=== PATIENT | male | born 1950 | race Caucasian/White ===

== ENCOUNTER 2025-02-09 11:13 | Outpatient (AMB) | payer MEDICARE, SELFPAY ==
--- NOTE | 2025-02-09 11:18 | A.OFFPC_ITS ---
Vital Signs 02/09/25 11:25 Height 5 ft 7 in Weight 167 lb 2 oz BMI 26.2 BP 100/64 Blood Pressure Location Rt brachial Position Sitting Respiration 16 Pulse 61 Pulse Source Pulse Oximeter Temp 97.9 F Temp Source Oral Pulse Oximetry (%) 98 Oxygen Delivery Method Room Air Intake Visit Reasons: Est. Care / B/P and Medication Intake Note: patient here for new patient visit. BP/Medication Laundry Helper Required: No Allergies No Known Allergies Allergy (Verified 02/09/25 11:46) Medication List - Last Reviewed 02/09/25 by ROSIE Alvarez amlodipine 5 mg PO DAILY diphenoxylate-atropine 2.5-0.025 mg 1 tab PO DAILY lisinopril 5 mg PO BID Tobacco use date assessed: 02/09/25 Fall risk assessment: No Falls in past year Last assessed Fall Risk: 02/09/25 Dental Screening Dental Screen Date: 02/09/25 Did you have a dental visit in the last 12 months?: Yes Did you have a dental problem in the last 6 months where you did not have access to dental care?: No Was dental information given to patient?: Patient has dentist HPI HPI Comments History of Present Illness Details 74 y/o M with HTN, Chronic diarrhea, Div erticulitis, B12 def, Umbilica hernia , lipoma of back SurgHx: hernia repair x 2, CTS bilat release, tonsillectomy FHx: brother w Ulcerative colitis, PGM Parkinsons; MOm HTN glaucoma, cataract; MGM HTN; SocHx: retired [employer] Health Maintenance: See scanned preventative medicine assessment with personalized health plan and screening schedule. Colon: 04/25/2014; Vaccines: Tdap 2023, UTD on all vaccines. AAA screen EKG: Here today to est care Old records reviewed, Ena Intentional Wt loss. Walking w/ . Has lost about 8 lbs in the last year. HTN controlled on current meds, albeit soft. IBS with sx. Would like to see Gi. Uses Lomotil PRN; last year declined colonoscopy; did not follow through on FIT testing. Would like cologaurd today. Has pink skin lesion R forearm that is not bothersome to him. ? Basal cell. Will follup with Derm ([place]) Exam Awake alert NAD RRR LS CTAB No edema ble , + PP R forearm, flat pink macule suspicious for BCC Mood and affect appropriate Plan: As his blood pressure is soft given the 8 lb weight loss I will have him hold his norvASC 5 mg and monitor his blood pressure daily at home. Bring log with him to the next appointment. The goal be to have the systolic blood pressure less than 140. I have renewed his Lomotil prescription. Ordered Cologuard. Referred him to [facility] group for his IBS. Recommend repeating his labs and returned to the office at the end of February for an annual wellness visit. Recommend following up with the skin lesion on the right arm at his convenience. Total time spent caring for the patient today was 45 minutes. This includes time spent before the visit reviewing the chart, time spent during the visit, and time spent after the visit on documentation, reviewing laboratory results, diagnostic imaging, medications, performing a medically necessary evaluation, counseling on diagnoses, care coordination, ordering appropriate tests, ordering appropriate medications, review of tests performed by other providers, reporting test results with the patient, communication with other healthcare providers. [facility] Medical History (Updated 02/09/25 @ 12:13 by Ivis Fisher, [facility]) High blood pressure History of gastroesophageal reflux (GERD) Family History (Updated 02/09/25 @ 11:29 by ROSIE Alvarez) Paternal Uncle Alcohol abuse Mother High blood pressure Father High blood pressure High cholesterol Social History (Updated 02/09/25 @ 11:25 by ROSIE Alvarez) Housing: House Patient Tobacco Use Status: Never used Tobacco e-Cigarette/Vaping Use: Never Used Second Hand Smoke Exposure: No service: No Current occupational status: retired Current occupational exposures/hazards: No Cognitive needs: No Hearing needs: No Vision needs: Yes Questionnaire PHQ-9 Over the last 2 weeks, how often have you been bothered by any of the following problems? 1. Little interest or pleasure in doing things: not at all 2. Feeling down, depressed, or hopeless: not at all 3. Trouble falling or staying asleep, or sleeping too much: not at all 4. Feeling tired or having little energy: not at all 5. Poor appetite or overeating: not at all 6. Feeling bad about yourself - or that you are a failure or have let yourself or your family down: not at all 7. Trouble concentrating on things, such as reading the newspaper or watching television: not at all 8. Moving or speaking so slowly that other people could have noticed. Or the opposite - being so fidgety or restless that you have been moving around a lot more than usual: not at all 9. Thoughts that you would be better off or of hurting yourself in some way: not at all Total score: 0 Depression Screening Interpretation: Negative Depression Screening Done: Yes 78439 - PHQ-9 Billing: Yes Source: Developed by Drs. Evert Pulido, Kathy Nieto, Ruiz Pimentel and colleagues, with an educational marco a from [employer]. Thrive Questionnaire Date Thrive assessed: 02/09/25 I am a: Patient What is your living situation today?: I have a steady place to live Within the past 12 months, did the food you bought not last and you didn't have the money to get more?: Never true Within the past 12 months, did you worry whether your food would run out before you got money to buy more?: Never true Do you have trouble paying for medicines?: No Do you have trouble getting transportation to medical appointments?: No Do you have trouble paying your heating and electricity bill?: No Do you have trouble taking care of your child, family member or friend?: No Do you have trouble with day-to-day activities such as bathing, preparing meals, shopping, managing finances, etc.?: No Are you currently unemployed and looking for a job?: No Are you interested in more education?: No Please select the resources that you would like help with: None Currently or been in a relationship where the following occur: No concerns reported THRIVE Score: 0 AUDIT C Alcohol Use Questionnaire (AUDIT-C) 1. How often do you have a drink containing alcohol?: Never 3. How often do you have six or more drinks on one occasion?: Never Total Score: 0 Score Reviewed/Action Taken: Yes CATIA-7 AMB Questionnaire CATIA-7 Date CATIA - 7 assessed: 02/09/25 Feeling nervous, anxious, or on edge: 0 = Not at all Not being able to stop or control worryin = Not at all Worrying too much about different things: 0 = Not at all Trouble relaxin = Not at all Being so restless that it is hard to sit still: 0 = Not at all Becoming easily annoyed or irritable: 0 = Not at all Feeling afraid as if something awful might happen: 0 = Not at all Total CATIA-7 score (0-4 normal; 5-9 mild; 10-14 moderate; 15-21 severe): 0 Source: Developed by Drs. Evert Pulido, Kathy Nieto, Ruiz Pimentel and colleagues, with an educational marco a from [employer]. CATIA-7 Assessment Billing CATIA-7 Assessment Tool: CATIA-7 Assessment 26843 Physical exam (Primary Care) Vital Signs: Last Vital Signs Temp 97.9 F 02/09/25 11:25 Pulse 61 02/09/25 11:25 Resp 16 02/09/25 11:25 BP 100/64 02/09/25 11:25 Pulse Ox 98 02/09/25 11:25 Oxygen Delivery Method Room Air 02/09/25 11:25 BMI result Body Mass Index 26.2 Tobacco/Smoking Status: Tobacco use Status Tobacco use date assessed 02/09/25 02/09/25 11:25 Patient Tobacco Use Status Never used Tobacco 02/09/25 11:25 e-Cigarette/Vaping Use Never Used 02/09/25 11:25 PHQ-9: PHQ-9 Score PHQ-9: Total score 0 02/09/25 11:20 Depression Screening Interpretation: Negative Thrive Assessment: Date of Thrive Assessment Date Thrive assessed 02/09/25 02/09/25 11:20 Currently or been in a relationship where the following occur: No concerns repor akhil Coding Level of Care Code New Pt Level 4 (15128) Complex EM visit Add On G2211 Diagnoses Encounter to establish care Z76.89 History of colonoscopy Z98.890 Laboratory exam ordered as part of routine general medical examination Z00.00 Primary hypertension I10 Hypertension type: primary hypertension Vitamin B 12 deficiency E53.8 Skin lesion of right arm L98.9 Additional Codes CATIA-7 Assessment Billing - CATIA-7 Assessment Tool: CATIA-7 Assessment 25707 ([id number]) PHQ-9 - 49371 - PHQ-9 Billing: Yes ([id number]) Assessment & Plan Assessment & Plan (1) Encounter to establish care: Code(s): Z76.89 - Persons encountering health services in other specified circumstances (2) History of colonoscopy: Onset Date: ~2014 Code(s): Z98.890 - Other specified postprocedural states Category: Surgical (3) Laboratory exam ordered as part of routine general medical examination: Code(s): Z00.00 - Encounter for general adult medical examination without abnormal findings Category: Medical (4) High blood pressure: Code(s): I10 - Essential (primary) hypertension Category: Medical Qualifiers: Hypertension type: primary hypertension Qualified Code(s): I10 - Essential (primary) hypertension (5) Vitamin B 12 deficiency: Code(s): E53.8 - Deficiency of other specified B group vitamins Category: Medical (6) Skin lesion of right arm: Code(s): L98.9 - Disorder of the skin and subcutaneous tissue, unspecified Category: Medical Plan . Orders: Orders Complete Blood Count no Diff Today Z00.00 - Encounter for general adult medical examination without abnormal findings Vitamin B12 and Folate Today Z00.00 - Encounter for general adult medical examination without abnormal findings Comprehensive Met. Panel Today Z00.00 - Encounter for general adult medical examination without abnormal findings Lipid Panel Today Z00.00 - Encounter for general adult medical examination without abnormal findings Microalbumin, Random (w Creat) Today Z00.00 - Encounter for general adult medical examination without abnormal findings Prostate Specific Antigen Scr Today Z00.00 - Encounter for general adult medic al examination without abnormal findings TSH reflex Free T4 Today Z00.00 - Encounter for general adult medical examination without abnormal findings Vitamin D 25-OH Total Today Z00.00 - Encounter for general adult medical examination without abnormal findings Referrals Cologuard Test Z12.11 - Encounter for screening for malignant neoplasm of colon [facility] Referral Z12.4 - Encounter for screening for malignant neoplasm of cervix Medications: New lisinopril 5 mg PO DAILY 90 tabs 0RF diphenoxylate-atropine 2.5-0.025 mg 1 tab PO DAILY 30 tabs 2RF amlodipine 5 mg PO DAILY 90 tabs 0RF Patient Instructions: Walk-In Care (Urgent Care): We Make it Easy Walk-in for urgent medical issues such as: ? Seasonal Allergies ? Insect Bites ? Cough ? Diarrhea ? Acute Asthma Attacks ? Back, Knee or Joint Pain ? Ear Infection ? Fever without a Rash ? Headaches ? Nausea ? [place] Eye, Rash or Skin Irritation ? Sore Throat ? Sports Physicals ? Vomiting Most insurances are accepted. Patients do not need to be part of the [facility] to seek care at the walk-in clinic. Locations [address] [place] [address] Open Friday through Friday 8am-5pm *Hours may vary due to staffing availability. To confirm Walk-In Care hours please call. [address] [place] [address] ? [phone] [facility] Walk-In Care in [place] provides services to ages 18 and over. Open Friday-Friday: 7 a.m. to 5 p.m. and Friday: 9 a.m. to 3 p.m.* *Hours may vary due to staffing availability. To confirm Walk-In Care hours in [place], please call [phone]. [address] [place] [address] ? [phone] [facility] Walk-In Care in [place] provides services to ages 12 and over. Open Friday-Friday: 8 a.m. to 5 p.m. Hours may vary due to staffing availability. To confirm Walk-In Care hours in [place], please call [phone]. LABORATORY SERVICES: [facility] Lab ? Primary Location [address] [place] [address] Friday through Friday 6:00 AM ? 5:00 PM Friday 7:00 AM ? 11:00 AM* [phone] The [facility] Lab is centrally located near the front entrance of the [facility] for easy outpatient access. Convenient parking is provided for outpatients. *Hours may vary due to staffing availability. To confirm Laboratory hours for any location, please call [phone]. Offsite Location For your convenience, we offer offsite laboratory draw stations at the following locations: [address] [place] [address] ? [facility] [address], [address] Friday through Friday 7:30 AM ? 1:00 PM* [phone] *Hours may vary due to staffing availability. To confirm Laboratory hours for any location, please call [phone]. [place] ? [address] Friday through Friday 6:00 AM ? 3:30 PM* Friday 6:30 AM ? 3 PM* [phone] *Hours may vary due to staffing availability. To confirm Laboratory hours for any location, please call [phone]. [address] [facility] Friday through Friday 7:30 AM ? 4:00 PM* [phone] *Hours may vary due to staffing availability. To confirm Laboratory hours for any location, please call [phone] [place] [address] Friday through 9:00 AM ? 4:00 PM* *Hours may vary due to staffing availability. To confirm Laboratory hours for any location, please call [phone]. Appointments are not necessary. Walk-ins are welcome. Like all the departments throughout the [facility], our Lab undergoes frequent reviews to ensure the quality and accuracy of test results, and our staff takes special pride in its status as a nationally accredited facility. Patient Portal: [facility] ONE PATIENT. ONE RECORD. BETTER CARE. [facility] has a fully integrated, cutting- edge mobile electronic health information system that has revolutionized the way we care for our patients and manage our organization. This system improves communication and coordination enabling us to provide safe, higher-quality care, and an overall positive experience for staff and patients. Our first priority, as always, is to deliver the highest quality care possible. The system is running in the background supporting that priority. This portal is for all [facility] services and practices. If you are experiencing any technical difficulties with enrolling or logging into the Patient Portal please complete the [facility] Patient Portal Technical Support Form. [facility] now offers a new secure on-line interactive tool for patients to review their health information ? ?Patient Portal. This interactive web portal will enable patients and their families to take an active role in their care by providing easy, secure access to their health information via the internet. The Patient Portal provides patients with instant access to their health information, including laboratory results, medications, allergies, demographic information, visit history, and more. In addition to managing their own care, parents and health care proxies with authorized consent will appreciate the ability to access the records of those individuals for whom they provide care. Please note: if you wish to gain access (Proxy) to another patient?s portal, you will be required to come to the Medical Records Department in person at [facility]. Both the patient giving proxy access and the proxy will need to provide photo identification and complete the appropriate authorization. The Patient Portal also allows track their appointments online. The [facility] Patient Portal also saves patients time by allowing them to submit updates to their demographic and contact information prior to their visits. Portal email notifications will also alert patients to any new activity on their portal, such as test results and new appointments. In order to initially enroll in the [facility] Patient Portal, you will need to enter some required information including the following: * your [facility] Medical Record number * your personal home email address * name * date of Please note: In order to enroll in the [facility] Patient Portal, we need to have your email address on file in your electronic medical record. ?The email address needs to be specific for one person (yourself) in order for your Portal enrollment to be successful. ?You can update your email address in person with our Registration staff when you are registering for a hospital visit. ?Otherwise, you will need to come to the Health Information Management (Medical Records) Department at [facility]. ?We are open from Friday ? Friday from 7:30 a.m. ? 4:30 p.m. ?You will be required to present a photo id. Once you have successfully enrolled in the Patient Portal, you will receive a one-time user id and password for the Portal, sent to your email address. ?This will allow you to log into the Patient Portal within 99 hrs and reset your own logon id and password, and define personal security questions. ?Once your permanent login and password have been set, you can log into the [facility] Patient P ortal at any time via the blue button above or from the Portal Logon button on any page of the [facility] website. [facility] and [facility] encourage all of our patients to enroll in Patient Portal as it presents a valuable opportunity for patients and their families to actively participate in their care and stay healthy Welcome to [facility]. ?We look forward to working with you.
[2025-02-09 11:25] VITALS: BP 100/64; PULSE 61; RESP 16; TEMP 36.6; O2SAT 98; BMI 26.2
--- OUTSIDE RECORDS SUMMARY | 2025-02-09 15:19 | XMS_ITS | Clinical Summary ---
Author Organization [facility] [place] [address] [place] [address] [place] [phone] Phone Care Team Providers Care System Support Developer Name Role Phone Katie Veronica MD Primary Care Provider [phone] Allergies No known active allergies Medications ibuprofen (ADVIL,MOTRIN) 400 mg tablet Take 400 mg by mouth 2 times daily as needed. Active lisinopriL (PRINIVIL,ZESTR IL) 5 mg tablet Take 1 tablet (5 mg total) by mouth 2 (two) times a day. 180 tablet 1 5 Active amLODIPine (NORVASC) 5 mg tablet TAKE 1 TABLET BY MOUTH DAILY 90 tablet 1 5 Active amLODIPine (NORVASC) 5 mg tablet TAKE 1 TABLET BY MOUTH DAILY 90 tablet 1 5 01/29/20 25 Discontinued Active Problems Problem Noted Date Diagnosed Date Bilateral carpal tunnel syndrome 06/03/2022 Overview (02/25/2024): s/p surgery 2022 Vitamin B12 deficiency 12/15/2017 Chronic diarrhea 06/17/2016 Essential hypertension 02/24/2016 Diverticulitis of colon without hemorrhage 04/25 Overview (02/25/2024): Incidental finding at colonoscopy 04/25/2014. Umbilical hernia 11/17/2013 Ventral hernia 11/17/2013 Overview (02/25/2024): Quite large Encounters Date Type Department Care Team Description 01/28/2025 Telephone Adult Medicine [address] [phone] Katie Veronica MD from Last 3 Months Immunizations Immunization Administration Dates Next Due COVID-19 (Moderna/Spikevax) 12yo and older 02/06/2023 H1N1 Inj Preservative Free 02/03/2009 Influenza trivalent, 0.5mL ( Fluad) 65yo and older 02/06/2023,02/14/2022 Influenza trivalent, 0.5mL, preservative free (Fluarix; FluLaval; Fluzone) ages 6mo and older (Afluria) 3 years and older 01/21/2017,03/05/2016 Influenza trivalent, with preservative (Fluzone; Afluria) 6mo and older 02/12/2024 Moderna (age 6mo & older) Bi valent, COVID-19, 0.5 mL or 0.25 mL dosage 02/14/2022 Moderna SARS-CoV-2 COVID-19, mRNA, LNP-S, preservative free 07/30/2021,02/23/2021,06/02/2020,2020 Pfizer SARS-CoV-2 COVID-19, mRNA, LNP-S, preservative free 02/12/2024 Pneumococcal conjugate 20 va lent (Prevnar 20, PCV 20) 2mo and older 02/27/2022 RSV, bivalent, protein subun it RSVpreF, 0.5mL, Preservative Free (Arexvy) 50yo and older 03/06/2023 Tdap Tetanus diptheria acell ular pertussis (Boostrix; Adacel) 7yo and older 03/11/2024,10/17/2010 Surgical History Surgery Date Site/Laterality Comments HERNIA REPAIR 2004 Left PROCEDURE: HISTORICAL HERNIA REPAIR/ING; COMMENT: open with mesh. HERNIA REPAIR teenager Right PROCEDURE: HISTORICAL HERNIA REPAIR/ING; COMMENT: open COLONOSCOPY W/ BIOPSIES 04/25/2014 PROCEDURE: [place] COLONOSCOPY W/BIOPSY SINGLE/MULTIPLE; COMMENT: 6 mm right colon polyp: tubular adenoma Medical History Medical History Date Comments Umbilical hernia 11/17/2013 DX:Umbilical he rnia Elevated blood pressure 11/17/2013 DX:[place] akhil blood pressure Diverticulosis of colon (wit hout mention of hemorrhage) 04/25/2014 DX:Diverticulosis of colon ( without mention of hemorrhage); COMMENT: Incidental finding at colonoscopy 04/25/2014. Chronic diarrhea 06/17/2016 DX:Chronic diar jesús Vitamin B12 deficiency 12/15/2017 DX:[place]it[place] B12 deficiency Essential hypertension 02/24/2016 Family History Medical History Relation Name Comments Other: UC ulcerative colitis Brother diagnosed at age 43, on bioactive agents since 48 Other: enlarged prostate Father TUR P ?50-60's Hypertension Maternal Grandfather at very old age, late 80' Cataracts Mother Glaucoma Mother Hypertension Mother Other: UC Mother adult onset, mi ld, no ongoing meds Other: parkinson's Paternal Grandmother Blindness Neg Hx Macular degeneration Neg Hx Strabismus Neg Hx Relation Name Status Comments Brother Father Maternal Grandfather Mother Paternal Grandmother Social History Tobacco Use Types Packs/Day Years Used Date Smoking Tobacco: Never Smokeless Tobacco: Never Tobacco Cessation:Counseling Given: Not Answered Alcohol Use Standard Drinks/Week Comments Yes 0 (1 standard drink = 0.6 oz pur e alcohol) Sex and Gender Information Value Date Recorded Sex Assigned at Not on file Legal Sex Male 8:37 PM EST Gender Identity Not on file Sexual Orientation Not on file Obstetrics History Last Filed Vital Signs Vital Sign Reading Time Taken Comments Blood Pressure 114/70 10/01/2024 9:31 AM EDT Pulse 72 10/01/2024 9:31 AM EDT Temperature 36.4 C (97.5 F) 10/01/2024 9:31 AM EDT Respiratory Rate 12 10/01/2024 9:31 AM EDT Oxygen Saturation - - Inhaled Oxygen Concentration - - Weight 78.1 kg (172 lb 3.2 oz) 10/01/2024 9:31 A M EDT Height 177.8 cm (5' 10 ) 10/01/2024 9:31 AM EDT Body Mass Index 24.71 10/01/2024 9:31 AM EDT Plan of Treatment Health Maintenance Due Date Last Done Comments Zoster Vaccines (1 of 2) 2002 Colorectal Cancer Screening: Stool Based Tests (FOBT/FIT) 03/30/2022 Falls Risk Assessment 03/30/2022 Social Influencers of Health Screening 03/30/2022 Medicare Annual Wellness Visit 03/14/2024 03/14/2023 Depression Screening 04/21/2024 03/14/2023 COVID-19 Vaccine ( season) 2024 02/12/2024, 02/06/2023, 02/14/2022, Additional history exists Influenza Vaccine (#1) 2024 , 02/06/2023, 02/14/2022, Additional history exists Hypertension/CHF/CAD Annual BMP Blood Test 11/05/2025 11/05/2024 Cholesterol Screening (Lipid Panel) 11/05/2029 11/05/2024, 07/22/2023 DTaP,Tdap,and Td Vaccines (3 - Td or Tdap) 03/11/2034 03/11/2024, 10/17/2010 Colorectal Cancer Screening: Colonoscopy Discontinued 04/25/2014, 04/25/2014 Hepatitis C Screening Completed 11/13/2019 Pneumococcal Vaccine: 50+ Years Completed 02/27/2022 RSV Immunization Adult Patients Completed 03/06/2023 HIB Vaccines Aged Out No longer eligi ble based on patient's age to complete this topic HPV Vaccines Aged Out No longer eligi ble based on patient's age to complete this topic Hepatitis A Vaccines Aged Out No long er eligible based on patient's age to complete this topic Hepatitis B Vaccines Aged Out No long er eligible based on patient's age to complete this topic IPV Vaccines Aged Out No longer eligi ble based on patient's age to complete this topic MMR Vaccines Aged Out No longer eligi ble based on patient's age to complete this topic Meningococcal ACWY Vaccine Aged Out N o longer eligible based on patient's age to complete this topic Meningococcal B Vaccine Aged Out No l onger eligible based on patient's age to complete this topic RSV Immunization Patients Under 20 months Aged Out No longer eligible based on patient's age to complete this topic Varicella Vaccines Aged Out No longer eligible based on patient's age to complete this topic Procedures Procedure Name Priority Date/Time Associated Diagnosis Comments BASIC METABOLIC PANEL Routine 11/05/2024 10:31 AM EDT Essential hypertension LIPID PANEL WITH REFLEX TO DIRECT LDL Routine 11/05/2024 10:31 AM EDT Essential hypertension DEPRESSION SCREENING Routine 03/14/2023 HEPATITIS C SCREENING Routine 11/13/2019 COLONOSCOPY Routine 04/25/2014 from Last 3 Months or Most Recently Relevant to Health Maintenance Results * Lipid panel with reflex to direct LDL (11/05/2024 10:31 AM EDT) Cholesterol 173 0 - 200 mg/dL LAB CHEMISTRY METHOD 11/05/2024 3:14 PM EDT [facility] Triglycerides 130 0 - 150 mg/dL LAB CHEMISTRY METHOD 11/05/2024 3:14 PM EDT [facility] HDL 62 >=40 mg/dL LAB CHEMISTRY METHOD 11/05/2024 3:14 PM EDT [facility] LDL Calculated 85 0 - 100 mg/dL LAB CHEMISTRY METHOD 11/05/2024 3:14 PM EDT [facility] VLDL Cholesterol Bal 26 mg/dL LAB CHEMISTRY METHOD 11/05/2024 3:14 PM EDT [facility] Non HDL Chol. (LDL+VLDL) 111 <145 mg/dL LAB CHEMISTRY METHOD 11/05/2024 3:14 PM EDT [facility] Chol/HDL Ratio 2.8 0.0 - 4.4 LAB CHEMISTRY METHOD 11/05/2024 3:14 PM EDT [facility] Blood Venous blood specimen / Unknown Venipuncture / Unknown 11/05/2024 10:31 AM EDT 11/05/2024 10:31 AM EDT us Katie Veronica MD LAB BLOOD ORDERABLES Final Resul t [facility] [address] [place] [address], * Basic metabolic panel (11/05/2024 10:31 AM EDT) Sodium 136 133 - 145 mmol/L LAB CHEMISTRY METHOD 11/05/2024 2:48 PM [facility] Potassium 4.4 3.5 - 5.5 mmol/L LAB CHEMISTRY METHOD 11/05/2024 2:48 PM [facility] Chloride 105 96 - 110 mmol/L LAB CHEMISTRY METHOD 11/05/2024 2:48 PM [facility] CO2 24 21 - 32 mmol/L LAB CHEMISTRY METHOD 11/05/2024 2:48 PM [facility] Anion Gap 7 3 - 11 LAB CHEMISTRY METHOD 11/05/2024 2:48 PM [facility] Glucose 91 70 - 100 mg/dL LAB CHEMISTRY METHOD 11/05/2024 2:48 PM [facility] BUN 18 5 - 25 mg/dL LAB CHEMISTRY METHOD 11/05/2024 2:48 PM [facility] Creatinine 1.06 0.70 - 1.30 mg/dL LAB CHEMISTRY METHOD 11/05/2024 2:48 PM [facility] eGFR 75 >=60 mL/min/1. 73m2 LAB CHEMISTRY METHOD 11/05/2024 2:48 PM [facility] Comment:Calculation based on the Chronic Kidney Disease Epidemiology Collaboration (CKD-EPI) equation refit without adjustment for race. BUN/Creatinine Ratio 17.0 LAB CHEMISTRY METHOD 11/05/2024 2:48 PM [facility] Calcium 8.8 8.5 - 10.5 mg/dL LAB CHEMISTRY METHOD 11/05/2024 2:48 PM [facility] Blood Venous blood specimen / Unknown Venipuncture / Unknown 11/05/2024 10:31 AM EDT 11/05/2024 10:31 AM EDT Katie Veronica MD LAB BLOOD ORDERABLES Final Resul t [facility] [address] [place] [address], [place] [phone] * Depression Screening (03/14/2023) Depression Screening Abstracted Historical Provider HEALTH MAINTENANCE Final Result * Hepatitis C Screening (11/13/2019) Hepatitis C Screening Abstracted Historical Provider MD HEALTH MAINTENANCE Final Result * Colonoscopy (04/25/2014) Colonoscopy Abstracted, no interpretation Anatomical Region Laterality Modality Other Historical Provider HEALTH MAINTENANCE Final Result from Last 3 Months or Most Recently Relevant to Health Maintenance Insurance [employer] - [place] MEDICARE ADVANTAGE Care Teams System Support Developer Relationship Specialty Start Date End Date Katie Veronica MD [address] [place] [address] PCP - General 03/10/06
--- OUTSIDE RECORDS SUMMARY | 2025-02-09 15:19 | XMS_ITS | Encounter Summary ---
Author Organization [facility] Address [address] [place] [address] Care Team Providers Care Supervisor Beehive Kiln Name Role Phone Katie Veronica MD Primary Care Provider Encounter Details Date Type Department Care Team (Late st Contact Info) Description 01/28/2025 Telephone Adult Medicine [address] [phone] Katie Veronica MD [address] [place] [phone] Social History Tobacco Use Types Packs/Day Years Used Date Smoking Tobacco: Never Smokeless Tobacco: Never Alcohol Use Standard Drinks/Week Comments Yes 0 (1 standard drink = 0.6 oz pur e alcohol) Sex and Gender Information Value Date Recorded Sex Assigned at Not on file Legal Sex Male 8:37 PM EST Gender Identity Not on file Sexual Orientation Not on file documented as of this encounter Plan of Treatment Not on file documented as of this encounter Visit Diagnoses Not on filedocumented in this encounter Care Teams Supervisor Beehive Kiln Relationship Specialty Start Date End Date Katie Veronica MD [address] [place] [phone] PCP - General 03/10/06 documented as of this encounter
== END 2025-02-09 12:09 | disposition home or self-care (01) ==
LOC: HO.HMCFM 11:14
PROVIDERS: PCP Nurse Practitioner Family; Visit Provider Nurse Practitioner Family
DX: Z76.89 Persons encountering health services in other specified circumstances (principal); Z98.890 Other specified postprocedural states; Z00.00 Encounter for general adult medical examination without abnormal findings; I10 Essential (primary) hypertension; E53.8 Deficiency of other specified B group vitamins; L98.9 Disorder of the skin and subcutaneous tissue, unspecified

== ENCOUNTER → 2025-02-09 11:13 | Outpatient (BNVA) | payer MEDICARE, SELFPAY | PROVIDERS: PCP Nurse Practitioner Family; Visit Provider Nurse Practitioner Family | DX: Z00.00 Encounter for general adult medical examination without abnormal findings (principal); I10 Essential (primary) hypertension; K58.0 Irritable bowel syndrome with diarrhea; E53.8 Deficiency of other specified B group vitamins; L98.9 Disorder of the skin and subcutaneous tissue, unspecified; Z76.89 Persons encountering health services in other specified circumstances; Z98.890 Other specified postprocedural states; Z79.899 Other long term (current) drug therapy | CPT/HCPCS: 96127; 99202 ==

== ENCOUNTER 2025-03-23 14:42 | Outpatient (REF) | payer MEDICARE, SELFPAY ==
--- OUTSIDE RECORDS SUMMARY | 2025-03-23 17:37 | XMS_ITS ---
Author Name [facility] Organization Unknown Care Team Organization Name Specialty Phone Email Start Date End Da radha [facility] 04/29/2022 12/08/2023 [facility] 02/26/2022 12/08/2023
--- OUTSIDE RECORDS SUMMARY | 2025-03-23 17:37 | XMS_ITS | Clinical Summary ---
Author Organization [facility] [address] [place] [address] [place] [address] Phone Care Team Providers Care Social Sciences Research Scientist Name Role Phone Katie Veronica MD Primary Care Provider [phone] Allergies No known active allergies Medications ibuprofen (ADVIL,MOTRIN) 400 mg tablet Take 400 mg by mouth 2 times daily as needed. Active lisinopriL (PRINIVIL,ZESTRI L) 5 mg tablet Take 1 tablet (5 mg total) by mouth 2 (two) times a day. 180 tablet 1 10/01/2024 Active amLODIPine (NORVASC) 5 mg tablet TAKE 1 TABLET BY MOUTH DAILY 90 tablet 1 01/28/2025 Active Active Problems Problem Noted Date Diagnosed Date Bilateral carpal tunnel syndrome 06/03/2022 Overview (02/25/2024): s/p surgery 2022 Vitamin B12 deficiency 12/15/2017 Chronic diarrhea 06/17/2016 Essential hypertension 02/24/2016 Diverticulitis of colon without hemorrhage 04/25 Overview (02/25/2024): Incidental finding at colonoscopy 04/25/2014. Umbilical hernia 11/17/2013 Ventral hernia 11/17/2013 Overview (02/25/2024): Quite large Encounters Date Type Department Care Team Description 01/28/2025 Telephone Adult Medicine [facility] [address], [place] [phone] Katie Veronica MD from Last 3 Months [...] COMMENT: open COLONOSCOPY W/ BIOPSIES 04/25/2014 PROCEDURE: [place] COLONOSCOPY W/BIOPSY SINGLE/MULTIPLE; COMMENT: 6 mm right colon polyp: tubular adenoma Medical History Medical History Date Comments Umbilical hernia 11/17/2013 DX:Umbilical he rnia Elevated blood pressure 11/17/2013 DX:[place] akhil blood pressure Diverticulosis of colon (wit [...] Routine 11/05/2024 10:31 AM EDT Essential hypertension HM DEPRESSION SCREENING Routine 03/14/2023 HEPATITIS C SCREENING Routine 11/13/2019 COLONOSCOPY Routine 04/25/2014 from Last 3 Months or Most Recently Relevant to Health Maintenance Results * Lipid panel with reflex to direct LDL (11/05/2024 10:31 AM EDT) Cholesterol 173 0 - 200 mg/dL LAB CHEMISTRY METHOD 11/05/2024 3:14 PM EDT [facility] Triglycerides 130 0 - 150 mg/dL LAB CHEMISTRY METHOD 11/05/2024 3:14 PM EDT [facility] HDL 62 >=40 mg/dL LAB CHEMISTRY METHOD 11/05/2024 3:14 PM EDT [facility] LDL Calculated 85 0 - 100 mg/dL LAB CHEMISTRY METHOD 11/05/2024 3:14 PM EDT [facility] VLDL Cholesterol Bal 26 mg/dL LAB CHEMISTRY METHOD 11/05/2024 3:14 PM EDT [facility] Non HDL Chol. (LDL+VLDL) 111 <145 mg/dL LAB CHEMISTRY METHOD 11/05/2024 3:14 PM EDT [facility] Chol/HDL Ratio 2.8 0.0 - 4.4 LAB CHEMISTRY METHOD 11/05/2024 3:14 PM EDT [facility] Blood Venous blood specimen / Unknown Venipuncture / Unknown 11/05/2024 10:31 AM EDT 11/05/2024 10:31 AM EDT us Katie Veronica MD LAB BLOOD ORDERABLES Final Resul t [facility] [address] [place] [address], * Basic metabolic panel (11/05/2024 10:31 AM EDT) Sodium 136 133 - 145 mmol/L LAB CHEMISTRY METHOD 11/05/2024 2:48 PM EDT [facility] Potassium 4.4 3.5 - 5.5 mmol/L LAB CHEMISTRY METHOD 11/05/2024 2:48 PM T [facility] Chloride 105 96 - 110 mmol/L LAB CHEMISTRY METHOD 11/05/2024 2:[address] [facility] CO2 24 21 - 32 mmol/L LAB CHEMISTRY METHOD 11/05/2024 2:[address] [facility] Anion Gap 7 3 - 11 LAB CHEMISTRY METHOD 11/05/2024 2:[address] [facility] Glucose 91 70 - 100 mg/dL LAB CHEMISTRY METHOD 11/05/2024 2:[address] [facility] BUN 18 5 - 25 mg/dL LAB CHEMISTRY METHOD 11/05/2024 2:[address] [facility] Creatinine 1.06 0.70 - 1.30 mg/dL LAB CHEMISTRY METHOD 11/05/2024 2:[address] [facility] eGFR 75 >=60 mL/min/1. 73m2 LAB CHEMISTRY METHOD 11/05/2024 2:48 PM T [facility] Comment:Calculation based on the Chronic Kidney Disease Epidemiology Collaboration (CKD-EPI) equation refit without adjustment for race. BUN/Creatinine Ratio 17.0 LAB CHEMISTRY METHOD 11/05/2024 2:[address] [facility] Calcium 8.8 8.5 - 10.5 mg/dL LAB CHEMISTRY METHOD 11/05/2024 2:[address] [facility] Blood Venous blood specimen / Unknown Venipuncture / Unknown 11/05/2024 10:31 AM EDT 11/05/2024 10:31 AM EDT us Katie Veronica MD LAB BLOOD ORDERABLES Final Resul t [facility] [address] [place] [address], [place] [phone] * Depression Screening (03/14/2023) Depression Screening Abstracted us Historical Provider HEALTH MAINTENANCE Final Result * Hepatitis C Screening (11/13/2019) Hepatitis C Screening Abstracted Historical Provider HEALTH MAINTENANCE Final Result * Colonoscopy (04/25/2014) Colonoscopy Abstracted, no interpretation Anatomical Region Laterality Modality Other Historical Provider HEALTH MAINTENANCE Final Result from Last 3 Months or Most Recently Relevant to Health Maintenance Insurance [employer] [place]IC[place] ADVANTAGE Care Teams Social Sciences Research Scientist Relationship Specialty Start Date End Date Katie Veronica MD [address] [place] [phone] PCP - General 03/10/06
[2025-03-23 19:16] LABS: Alanine Aminotransferase 21 U/L (0-40); Albumin Level 4.3 g/dL (3.5-5.0); Alkaline Phosphatase 70 U/L (39-117); Anion Gap 11 (12-20); Aspartate Amino Transferase 32 U/L (5-37); Blood Urea Nitrogen 19 mg/dL (9-16); Calcium 9.5 mg/dL (8.4-10.2); Carbon Dioxide 27 mmol/L (22-29); Chloride 104 mmol/L (96-108); Cholesterol 213 mg/dL (<200); Estimated Glomerular Filt Rate 59; HDL Cholesterol 43 mg/dL (>40); Potassium 4.3 mmol/L (3.3-5.1); Sodium 138 mmol/L (135-145); Total Protein 6.8 g/dL (6.5-8.0); Triglycerides 180 mg/dL (<150)
[2025-03-23 19:21] LABS: Hematocrit 43.0 % (42.0-52.0); Hemoglobin 14.1 g/dl (14.0-18.0); Mean Corpuscular HGB Conc 32.8 g/dl (31.0-36.0); Mean Corpuscular Hemoglobin 28.7 pg (27.0-33.0); Mean Corpuscular Volume 87.4 fL (80.0-98.0); NRBC Abs Auto 0.000 X10*3/uL (0.0-0.012); NRBC Pct Auto 0.0 /100WBC (0.0-0.2); Platelet Count 300 X10*3/uL (160-400); Red Blood Count 4.92 X10*6/uL (4.60-5.80); White Blood Count 6.6 X10*3/uL (4.8-10.8)
[2025-03-23 19:33] LABS: Folate 5.9 ng/mL (> or = 4.0); Vitamin B12 205 pg/mL (200-900)
== END 2025-03-23 14:43 | disposition home or self-care (01) ==
LOC: HO.WFDLDS 14:42
PROVIDERS: Visit Provider Nurse Practitioner Family
DX: Z00.00 Encounter for general adult medical examination without abnormal findings (principal); Z12.5 Encounter for screening for malignant neoplasm of prostate; Z13.29 Encounter for screening for other suspected endocrine disorder; Z13.6 Encounter for screening for cardiovascular disorders
CPT/HCPCS: 36415; 80053; 80061; 82306; 82607; 82746; 84153; 84443; 85027

== ENCOUNTER 2025-03-24 12:18 | Outpatient (REF) | payer MEDICARE, SELFPAY | END 2025-03-24 12:19 | disposition home or self-care (01) | LOC: HO.LNP 12:18 | PROVIDERS: Visit Provider Nurse Practitioner Family | DX: Z00.00 Encounter for general adult medical examination without abnormal findings (principal) | CPT/HCPCS: 82043; 82570 ==

== ENCOUNTER 2025-04-05 13:02 | Outpatient (AMB) | payer MEDICARE, SELFPAY ==
--- NOTE | 2025-04-05 13:09 | AM.OFFVISMDC ---
Intake Vital Signs 04/05/25 13:15 Height 5 ft 7 in Weight 163 lb 4 oz BMI 25.6 BP 122/78 Blood Pressure Location Rt brachial Position Sitting Respiration 12 Pulse 64 Pulse Source Pulse Oximeter Temp 97.2 F Temp Source Oral Pulse Oximetry (%) 97 Oxygen Delivery Method Room Air Intake Visit Reasons: end of Feb AWV w/ labs/BP review Intake Note: AWV and review labs. Grader Meat Required: No Allergies No Known Allergies Allergy (Verified 04/05/25 13:10) Medication List - Last Reconciled 04/05/25 by Ivis Fisher, [facility]- amlodipine 5 mg PO DAILY diphenoxylate-atropine 2.5-0.025 mg 1 tab PO DAILY lisinopril 5 mg PO DAILY Do you need a note to return to daycare/school/sports/work: No HPI HPI Comments History of Present Illness Details Here today for AWV. The Medicare Annual Wellness Visit (AWV) is a yearly appointment with a health professional to identify health risks and help reduce them and to create or update a personalized prevention plan. During a Medicare AWV, health professionals should also review any current opioid prescriptions, detect any cognitive impairment, and establish or update medical and family history. 74 y/o M with HTN, Chronic diarrhea, Diverticulitis, B12 def, Umbilica hernia , lipoma of back, HLD, BPH SurgHx: hernia repair x 2, CTS bilat release, tonsillectomy FHx: brother w Ulcerative colitis, PGM Parkinsons; MOm HTN glaucoma, cataract; MGM HTN; SocHx: retired [employer], . Health Maintenance: See scanned preventative medicine assessment with personalized health plan and screening schedule. Colon: 04/25/2014; 02/2025 negative cologaurd Vaccines: Tdap 2023, UTD on all vaccines. AAA screen: NA EKG: NSR [place] of Care: [place] did not fu with them yet, referral active. Optho wears glasses Visual Acuity: glasses, last exam 1 year ago, every other year visits Hearing Screening: no issues or concerns ACP: and son, blank HCP and MOLST form along w/ edu provided today. Dietary/Nutrition/Exercise Edu provided: Y During the course of the visit the patient was educated and counseled about appropriate screening and preventative services. Patient instructions were provided to the patient in written or electronic format. I have reviewed and verified the above information. Here today for an annual Medicare wellness visit. He has been monitoring his blood pressures at home. Home log reviewed. Systolic blood pressure with 1 outlier in the 90s otherwise in the low 100s. Pulse 50-70. Norvasc 5 mg was discontinued at the last office visit. He is currently taking lisinopril 5 mg daily. He denies any neuro or cardiac complaints. His most recent labs show EGFR 59. Urine microalbumin creatinine ratio was negative. Question decrease d/t hypoperfusion due to a soft blood pressure. The plan will be to have him decrease his lisinopril 2.5 mg daily, monitor blood pressure at home, hydrate liberally and repeat his labs in about 6-8 weeks. His B12 was also noted to be on the low end of normal at 205 He reports that he quit drinking alcohol 8 months ago. He reports that he limits his animal protein but does eat fish. The plan will be to have him start [id number] B12 a 1000 mcg daily and repeat his labs. His LDL is above goal. He reports that this is within normal limits for him. He does not wish to start statin or any other cholesterol-lowering medication. He does exercise. He is intentionally losing weight. We will monitor annually. His PSA was greater than 7. He reports that he had episodes of frequent nocturia however he is only getting up once at HS to urinate. He is otherwise happy with his voiding parameters. Has a family history of prostate cancer with his father undergoing a TURP. I was unable to pull his last PSA from his previous medical records. With previous notes from his primary care reports that his 'PSA is stable'. The plan will be to repeat his PSA in about 6-8 weeks. Advised to avoid heavy lifting or ejaculation prior to having these labs completed as this can interfere with the results. If PSA level remains elevated we will refer to urology for further evaluation and treatment. He has IBS. His Cologuard was negative February of 2025. He has an active referral to [facility] G[facility] group with an appointment pending at this time. He needs a refill on Lomotil. This will be sent today. He complains of voice changes over the last few months. He reports episodes of hoarseness in his voice that can last for a few minutes up to a few hours. He has no precipitating events that seem to bring on the change in his voice. He reports that his has not noticed a change in his voice. He reports that his voice sounds like he has been screaming at a concert all night does not sound like my voice . He denies any sore throat, trouble swallowing. He denies any reflux symptoms. When asked about any other symptoms he does endorse a tremor of his left extremity has been present for years,worse when raising arm to drink from a cup. He has a family history of Parkinson's in 1 of his grandparents. Reviewed with him that this could be related to vocal cord issue, which would require ENT referral, it could be related silent reflux -> Gastroenterology, or could be a sign of Parkinson's -> Neuro. I have advised for him to keep a diary of these things & bring w/ him to the next office visit and we can objectively see how often these symptoms are occuring. EKG NSR A1c 5.7 prediabetes. Advise diet, exercise and monitoring. Exam: General: Well developed, well nourished, in no acute distress. Appears stated age. Head: Normocephalic, atraumatic. Voice is soft. Eyes: Pupils are equal, round and reactive to light and accommodation. Conjunctivae are clear. Vision grossly normal. Ears: TMs clear AU, EACS WNL Nose: Patent, without discharge. Mouth: There are no ulcers or lesions noted. No inflammation, no post nasal drip, no plaques nor exudates. Neck: Supple, no adenopathy or thyromegaly. Lungs: Clear to auscultation bilaterally. No rales, rhonchi or wheeze noted. Good air flow in all suarez. Heart: Regular rate and rhythm. No murmurs, click, rubs or gallops are noted. Abdomen: Bowel sounds present in all quadrants. The abdomen is soft, nontender, with no masses or organomegaly noted. No hernias are noted. Musculoskeletal: Joints are nontender, without swelling, redness, or effusions. Range of motion is observed to be normal. Pulses: Peripheral pulses are equal and palpable bilaterally. Extremities: No clubbing, cyanosis nor edema is noted. Neurologic: Gait and station normal. Cranial Nerves 2-12 intact. Motor strength grossly symmetrical and intact. No sensory loss. Balance normal. Tremor of left hand and upper extremity noted Skin: No rashes, ulcers noted. Turgor is good. Skin color is good. Hair and nails are without abnormalities. Psych: Normal eye contact, affect and mood appropriate, and normal interactions. Patient is alert and appropriate to context. Plan as above RTO in 6-8 weeks to fu on the above, with repeat labs. An additional 30 minutes was spent addressing the problem(s) noted at todays visit. This includes time spent before the visit reviewing the chart, time spent during the visit, and time spent after the visit on documentation reviewing laboratory results, diagnostic imaging, medications, performing a medically necessary evaluation, counseling on diagnoses, care coordination, ordering appropriate tests, ordering appropriate medications, review of tests performed by other providers, reporting test results with the patient, communication with other healthcare providers. [facility] Medical History (Updated 04/05/25 @ 14:54 by Ivis Fisher, [facility]) High blood pressure History of gastroesophageal reflux (GERD) Family History (Updated 02/09/25 @ 11:29 by ROSIE Alvarez) Paternal Uncle Alcohol abuse Mother High blood pressure Father High blood pressure High cholesterol Social History (Updated 02/09/25 @ 11:25 by ROSIE Alvarez) Housing: House Patient Tobacco Use Status: Never used Tobacco e-Cigarette/Vaping Use: Never Used Second Hand Smoke Exposure: No service: No Current occupational status: retired Current occupational exposures/hazards: No Cognitive needs: No Hearing needs: No Vision needs: Yes Questionnaire Medicare Wellness Checkup What [age] your [age]?: [age] What gender do you identify with?: male During the past 4 weeks, how much have you been bothered by emotional problems such as feeling anxious, depressed, irritable, sad or downhearted, and blue?: not at all During the past 4 weeks, has your physical & emotional health limited your social activities with family, friends, neighbors, or groups?: not at all During the past 4 weeks, how much bodily pain have you generally had?: very mild pain During the past 4 weeks, was someone available to help you if you needed & wanted help?: yes, as much as I wanted During the past 4 weeks, what was the hardest physical activity you could do for at least 2 minutes?: light Can you get to places out of walking distance without help? (For eg., can you travel alone on buses, taxis or drive your car?): Yes Can you go shopping for groceries or clothes without someone's help?: Yes Can you prepare your own meals?: Yes Can you do your housework without help?: Yes Because of any health problems, do you need the help of another person with your personal care needs such as eating, bathing, dressing or getting around the house?: No Can you handle your own money without help?: Yes During the past 4 weeks, how would you rate your health in general?: excellent During the past 4 weeks how have things been going for you?: very well; could hardly better Are you having difficulties driving your car?: no Do you always fasten your seat belt when you are in a car?: yes, usually During past 4 weeks, have you been bothered by the following: never: Falling or dizzy when standing up, Sexual problems?, Trouble eating well?, Teeth or denture problems?, Problems using the telephone? and Tiredness or fatigue? Have you fallen 2 or more times in the past year?: No Are you afraid of falling?: No Are you a smoker?: no During the past 4 weeks, how many drinks of wine, beer, or other alcoholic beverages did you have?: no alcohol at all Do you exercise for about 20 minutes 3 or more times a week?: yes, some of the time Have you been given information to help with the following?: no: Hazards in your house that might hurt you? and no: Keeping track of your medications? How often do you have trouble taking medicines the way you have been told to take them?: I always take medicine as prescribed How confident are you that you can control & manage most of your health problems?: very confident What is your race?: White Activity of Daily Living Bathing - sponge bath, tub bath or shower: receives no assistance (gets in/out by self, if usual bathing means Dressing - getting clothes from closets & drawers, including inner/outer garments & fasteners.: gets clothes & gets completely dressed without help Toileting - going to the 'toilet room' for urine/bowel elimination & cleaning self/arranging clothes: goes to toilet room, cleans self, arranges clothes without help Transfer: moves in & out of bed and chair without help (may use support object) Continence: controls urination/bowel movements completely by self Feeding: feeds self without help Total Score: 0 Information obtained from: patient Using telephone: independent Traveling: independent Shopping: independent Preparing meals: independent Housework: independent Taking medicine: independent Managing money: independent PHQ-9 Over the last 2 weeks, how often have you been bothered by any of the following problems? 1. Little interest or pleasure in doing things: not at all 2. Feeling down, depressed, or hopeless: not at all 3. Trouble falling or staying asleep, or sleeping too much: not at all 4. Feeling tired or having little energy: not at all 5. Poor appetite or overeating: not at all 6. Feeling bad about yourself - or that you are a failure or have let yourself or your family down: not at all 7. Trouble concentrating on things, such as reading the newspaper or watching television: not at all 8. Moving or speaking so slowly that other people could have noticed. Or the opposite - being so fidgety or restless that you have been moving around a lot more than usual: not at all 9. Thoughts that you would be better off or of hurting yourself in some way: not at all Total score: 0 Depression Screening Interpretation: Negative Depression Screening Done: Yes 18164 - PHQ-9 Billing: Yes Source: Developed by Drs. Evert Pulido, Kathy Nieto, Ruiz Pimentel and colleagues, with an educational marco a from [employer]. Physical Exam Vital Signs: Last Vital Signs Temp 97.2 F 04/05/25 13:15 Pulse 64 04/05/25 13:15 Resp 12 04/05/25 13:15 BP 122/78 04/05/25 13:15 Pulse Ox 97 04/05/25 13:15 Oxygen Delivery Method Room Air 04/05/25 13:15 BMI result Body Mass Index 25.6 Office Procedures EKG [id number], Complete Vision Screening Right Eye: 20/40 Left Eye: 20/40 Bilateral: 20/30 Color: Pass Corrected: Pass (wearing glasses) 37707 - Vision Screening Results AMB Hemoglobin A1c AMB Hemoglobin A1c 5.7 % Last Edit by Yulia Colindres MA on 04/05/25 13:29 Results Reviewed Results Reviewed: Laboratory Last Values Hgb A1c (Clinic) 5.7 % (4.0-6.0) 04/05/25 13:29 Laboratory 03/24/25 Result Units Range Interpretation Provider Comments White Blood Count 6.6 X10*3/uL (4.8-10.8) Red Blood Count 4.92 X10*6/uL (4.60-5.80) Hemoglobin 14.1 g/dl (14.0-18.0) Hematocrit 43.0 % (42.0-52.0) Mean Corpuscular Volume 87.4 fL (80.0-98.0) Mean Corpuscular Hemoglobin 28.7 pg (27.0-33.0) Mean Corpuscular Hemoglobin Concent 32.8 g/dl (31.0-36.0) Red Cell Distribution Width 13.2 % (11.0-16.0) Platelet Count 300 X10*3/uL (160-400) Mean Platelet Volume 10.0 fL (9.4-12.4) Nucleated RBC Absolute Count (auto) 0.000 X10*3/uL (0.0-0.012) Nucleated Red Blood Cells % (auto) 0.0 /100WBC (0.0-0.2) Sodium Level 138 mmol/L (135-145) Potassium Level 4.3 mmol/L (3.3-5.1) Chloride Level 104 mmol/L (96-108) Carbon Dioxide Level 27 mmol/L (22-29) Anion Gap 11 (12-20) Low Blood Urea Nitrogen 19 mg/dL (9-16) High Creatinine 1.21 mg/dL (0.5-1.4) Estimated Creatinine Clearance Calc Not Reportable Estimat Glomerular Filtration Rate 59 Random Glucose 88 mg/dL (60-115) Calcium Level 9.5 mg/dL (8.4-10.2) Total Bilirubin 0.6 mg/dL (0.0-1.0) Aspartate Amino Transf (AST/SGOT) 32 U/L (5-37) Alanine Aminotransferase (ALT/SGPT) 21 U/L (0-40) Alkaline Phosphatase 70 U/L (39-117) Total Protein 6.8 g/dL (6.5-8.0) Albumin 4.3 g/dL (3.5-5.0) Triglycerides Level 180 mg/dL (<150) High Cholesterol Level 213 mg/dL (<200) High LDL Cholesterol, Calculated 134 mg/dL (<100) High HDL Cholesterol 43 mg/dL (>40) Prostate Specific Antigen Screen 7.05 ng/mL (<0.05-4.0) High Vitamin B12 Level 205 pg/mL (200-900) 25-Hydroxy Vitamin D Total 76.6 ng/mL (>30) Folate 5.9 ng/mL (> or = 4.0) Thyroid Stimulating Hormone (TSH) 1.18 uIU/mL (0.32-4.0) Urine Creatinine 174.80 mg/dL Urine Microalbumin < 5.0 mg/L Urine Microalbumin/Creatinine Ratio TNP Assessment & Plan Assessment & Plan (1) Encounter for annual wellness visit (AWV) in Medicare patient: Onset Date: ~04/05/25 Code(s): Z00.00 - Encounter for general adult medical examination without abnormal findings (2) Prediabetes: Code(s): R73.03 - Prediabetes (3) Elevated PSA, less than 10 ng/ml: Onset Date: ~03/2025 Code(s): R97.20 - Elevated prostate specific antigen [PSA] (4) Decreased GFR: Onset Date: ~03/2025 Code(s): R94.4 - Abnormal results of kidney function studies (5) HLD (hyperlipidemia): Code(s): E78.5 - Hyperlipidemia, unspecified Qualifiers: Hyperlipidemia type: moderate mixed hyperlipidemia not requiring statin therapy Qualified Code(s): E78.2 - Mixed hyperlipidemia (6) Vitamin B 12 deficiency: Comment: start otc b12 1000mcg qd Code(s): E53.8 - Deficiency of other specified B group vitamins (7) Hoarseness or changing voice: Comment: monitor consider neuro vs ent vs gi as causes Code(s): R49.9 - Unspecified voice and resonance disorder (8) High blood pressure: Comment: norvasbrunilda ron lisinopril decreased to 2.5mg monitor at home Code(s): I10 - Essential (primary) hypertension Qualifiers: Hypertension type: primary hypertension Qualified Code(s): I10 - Essential (primary) hypertension (9) History of colonoscopy: Onset Date: ~02/21/25 Comment: Negative cologuard 02/2025 Code(s): Z98.890 - Other specified postprocedural states Plan . Orders: Orders AMB Hemoglobin A1c Today Z13.9 - Encounter for screening, unspecified Creatinine 6 Weeks E53.8 - Deficiency of other specified B group vitamins, R73.03 - Prediabetes, R94.4 - Abnormal results of kidney function studies, R97.20 - Elevated prostate specific antigen [PSA] Blood Urea Nitrogen 6 Weeks E53.8 - Deficiency of other specified B group vitamins, R73.03 - Prediabetes, R94.4 - Abnormal results of kidney function studies, R97.20 - Elevated prostate specific antigen [PSA] Prostate Specific Antigen Scr 6 Weeks E53.8 - Deficiency of other specified B group vitamins, R73.03 - Prediabetes, R94.4 - Abnormal results of kidney function studies, R97.20 - Elevated prostate specific antigen [PSA] Vitamin B12 6 Weeks E53.8 - Deficiency of other specified B group vitamins, R73.03 - Prediabetes, R94.4 - Abnormal results of kidney function studies, R97.20 - Elevated prostate specific antigen [PSA] Medications: New mecobalamin (vitamin B12) (B12 Active) 1,000 mcg PO DAILY 90 tabs 3RF Changed From lisinopril 5 mg PO DAILY 90 tabs 0RF To lisinopril 2.5 mg PO DAILY 90 tabs 0RF Refilled diphenoxylate-atropine 2.5-0.025 mg 1 tab PO DAILY 30 tabs 2RF Patient Instructions: Health screenings for men You should visit your health care provider regularly, even if you feel healthy. The purpose of these visits is to: Screen for medical issues Assess your risk for future medical problems Encourage a healthy lifestyle Update vaccinations and other preventive care services Help you get to know your provider in case of an illness Information Even if you feel fine, you should still see your provider for regular checkups. These visits can help you avoid problems in the future. For example, the only way to find out if you have high blood pressure is to have it checked regularly. High blood sugar and high cholesterol level also may not have any symptoms in the early stages. Simple blood tests can check for these conditions. There are specific times when you should see your provider or receive specific health screenings. The [place] Preventive Services Task Force publishes a list of recommended screenings. Below are screening guidelines for men ages 40 to 64. BLOOD PRESSURE SCREENING Have your blood pressure checked at least once every year. Watch for blood pressure screenings in your area. Ask your provider if you can stop in to have your blood pressure checked. Ask your provider if you need your blood pressure checked more often if: You have diabetes, heart disease, kidney problems, or are overweight or have certain other health conditions You have a first-degree relative with high blood pressure You are Black Your blood pressure top number is from 120 to 129 mm Hg, or the bottom number is from 70 to 79 mm Hg If the top number is 130 mm Hg or greater or the bottom number is 80 mm Hg or greater, this is considered stage 1 hypertension. Schedule an appointment with your provider to learn how you can lower your blood pressure. Effects of age on blood pressure CHOLESTEROL SCREENING Cholesterol screening should begin at age 35 for men with no known risk factors for coronary heart disease. Repeat cholesterol screening should take place: Every 5 years for men with normal cholesterol levels More often if changes occur in lifestyle (including weight gain and diet) More often if you have diabetes, heart disease, kidney problems, or certain other conditions COLORECTAL CANCER SCREENING If you are under age 45, talk to your provider about getting screened. You may need to be screened if you have a strong family history of colon cancer or polyps. Screening may also be considered if you have risk factors such as a history of inflammatory bowel disease or polyps. If you are age 45 to 75, you should be screened for colorectal cancer. There are several screening tests available: A stool-based fecal occult blood (gFOBT) or fecal immunochemical test (FIT) every year A stool sDNA test every 1 to 3 years Flexible sigmoidoscopy every 5 years or every 10 years with stool testing FIT done every year CT colonography (virtual colonoscopy) every 5 years Colonoscopy every 10 years You may need a colonoscopy more often if you have risk factors for colorectal cancer, such as: Ulcerative colitis A personal or family history of colorectal cancer A history of growths in your colon called adenomatous polyps DENTAL EXAM Go to the dentist once or twice every year for an exam and cleaning. Your dentist will evaluate if you have a need for more frequent visits. DIABETES SCREENING All adults who do not have risk factors for diabetes should be screened starting at age 35 and repeated every 3 years. If you have other risk factors for diabetes, such as a first degree relative with diabetes, overweight or obesity, high blood pressure, prediabetes, or a history of heart disease, you may be tested more often. If you are overweight and have other risk factors, such as high blood pressure and are planning to become , screening is recommended. EYE EXAM Have an eye exam every 2 to 4 years ages 40 to 54 and every 1 to 3 years ages 55 to 64. Your provider may recommend more frequent eye exams if you have vision problems or glaucoma risk. Have an eye exam that includes an examination of your retina (back of your eye) at least every year if you have diabetes. IMMUNIZATIONS Commonly needed vaccines include: Flu shot: get one every year COVID-19 vaccine: ask your provider what is best for you Tetanus-diphtheria and acellular pertussis (Tdap) vaccine: have as one of your tetanus-diphtheria vaccines if you did not receive it as an adolescent Tetanus-diphtheria: have a booster (or Tdap) every 10 years Varicella vaccine: receive 2 doses if you never had chickenpox or the varicella vaccine and were born in 1980 or after Hepatitis B vaccine: receive 2, 3, or 4 doses, depending on your exact circumstances, if you did not receive these as a child or adolescent, until age 59 Shingles (herpes zoster) vaccine: at or after age 50 Ask your provider if you should receive other immunizations, especially if you have certain medical conditions, such as diabetes or are at increased risk for some diseases such as pneumonia. INFECTIOUS DISEASE SCREENING Screening for hepatitis C: all adults ages 18 to 79 should get a one-time test for hepatitis C. Screening for human immunodeficiency virus (HIV): all people ages 15 to 65 should get a one-time test for HIV. Depending on your lifestyle and medical history, you may need to be screened for infections such as syphilis, chlamydia, and other infections. LUNG CANCER SCREENING You should have an annual screening for lung cancer with low-dose computed tomography (LDCT) if: You are age 50 to 80 years AND You have a 20 pack-year smoking history AND You currently smoke or have quit within the past 15 years OSTEOPOROSIS SCREENING If you are age 50 to 64 and have risk factors for osteoporosis, you should discuss screening with your provider. Risk factors can include long-term steroid use, low body weight, smoking, heavy alcohol use, having a fracture after age 50, or a family history of hip fracture or osteoporosis. Osteoporosis PHYSICAL EXAM All adults should visit their provider from time to time, even if they are healthy. The purpose of these visits is to: Screen for diseases Assess risk of future medical problems Encourage a healthy lifestyle Update vaccinations and other preventive care services Maintain a relationship with a provider in case of an illness Your height, weight, and body mass index (BMI) should be checked at every exam. During your exam, your provider may ask you about: Depression and anxiety Diet and exercise Alcohol and tobacco use Safety, such as use of seat belts and smoke detectors Your medicines and risk for interactions PROSTATE CANCER SCREENING If you're 55 through 69 years old, before having the test, talk to your provider about the pros and cons of having a PSA test. Ask about: Whether screening decreases your chance of dying from prostate cancer. Whether there is any harm from prostate cancer screening, such as side effects from testing or overtreatment of cancer when discovered. Whether you have a higher risk of prostate cancer than others. If you are age 55 or younger, screening is not generally recommended. You should talk with your provider about if you have a higher risk for prostate cancer. Risk factors include: Having a family history of prostate cancer (especially a brother or father) Being If you choose to be tested, the PSA blood test is repeated over time (yearly or less often), though the best frequency is not known. Prostate examinations are no longer routinely done on men with no symptoms. Prostate cancer SKIN EXAM Your provider may check your skin for signs of skin cancer, especially if you're at high risk. People at high risk include those who have had skin cancer before, have close relatives with skin cancer, or have a weakened immune system. TESTICULAR EXAM The [place] Preventive Services Task Force (USPSTF) now recommends against performing testicular self-exams. Doing testicular self-exams has been shown to have little to no benefit. Quality Reporting (2019) Adult ([facility] 138/06/12/68) Smoking risk assessment performed?: Yes Patient Tobacco Use Status: Never used Tobacco Depression screening performed: Yes Screen Results: Yes Negative screen Systolic BP not done?: No Diastolic BP not done?: No BMI screening not done: No Sexual Activity Screening ([facility] 153) Sexually active?: Yes Immunizations ([facility] 147, 117) Annual Influenza Vaccine: Yes Measles Antibody Test: No Mumps Antibody Test: No Rubella Antibody Test: No Varicella Antibody Test: No Anti Hepatitis A IgG Antigen test: No Anti Hepatitis B Virus Surface Ab test: No Fall Risk Screening ([facility] 139) Last assessed Fall Risk: 04/05/25 Fall risk assessment: No Falls in past year Depression/Bipolar (159/160/161/177) PHQ-9: Total score: 0 Coding Level of Care Code Medicare Subsequent (G0439) Est Pt Level 4 (64627) Diagnoses Encounter for annual wellness visit (AWV) in Medicare patient Z00.00 Prediabetes R73.03 Elevated PSA, less than 10 ng/ml R97.20 Decreased GFR R94.4 Moderate mixed hyperlipidemia not requiring statin therapy E78.2 Hyperlipidemia type: moderate mixed hyperlipidemia not requiring statin therapy Vitamin B 12 deficiency E53.8 Hoarseness or changing voice R49.9 Primary hypertension I10 Hypertension type: primary hypertension History of colonoscopy Z98.890 CPT Codes Advance Care Planning - Time spent: 16-45 minutes ([id number]) EKG - CPT: 18486-[id number], Complete ([id number]) Vision Screening - Vision Screenin - Vision Screening ([id number]) Additional Codes PHQ-9 - 43745 - PHQ-9 Billing: Yes ([id number]) Advance Care Planning Advance Care Planning discussion: Exists, not on file Date of discussion: 04/05/25 Who was present: self Forms completed: Health Care Proxy, MOLST and Living will Time spent: 16-45 minutes Actual minutes spent: 16
[2025-04-05 13:15] VITALS: BP 122/78; PULSE 64; RESP 12; TEMP 36.2; O2SAT 97; BMI 25.6
--- OUTSIDE RECORDS SUMMARY | 2025-04-05 16:59 | XMS_ITS | Clinical Summary ---
Author Organization [facility] [address] [place] [address] [place] [address] Phone Care Team Providers Care Roaster Operator Name Role Phone Katie Veronica MD Primary Care Provider [phone] Allergies No known active allergies Medications ibuprofen [...] Care Team Description 01/28/2025 Telephone [place] Medicine [facility] [place] [address], [place] [phone] Katie Veronica MD from Last 3 Months [...] COMMENT: open COLONOSCOPY W/ BIOPSIES 04/25/2014 PROCEDURE: TN COLONOSCOPY W/BIOPSY SINGLE/MULTIPLE; COMMENT: 6 mm right colon polyp: tubular adenoma Medical History Medical History Date Comments Umbilical hernia 11/17/2013 DX:Umbilical he rnia Elevated blood pressure 11/17/2013 DX:[place] akhil blood pressure Diverticulosis of colon (wit [...] on file Sexual Orientation Not on file Last Filed Vital Signs Vital Sign Reading [...] Routine 03/14/2023 HEPATITIS C SCREENING Routine 11/13/2019 HM COLONOSCOPY Routine 04/25/2014 from Last 3 Months [...] t [facility] [address] [place] [address], * Basic metabolic panel (11/05/2024 10:31 AM EDT) Sodium 136 133 - 145 mmol/L LAB CHEMISTRY METHOD 11/05/2024 2:48 PM [facility] Potassium 4.4 3.5 - 5.5 mmol/L LAB CHEMISTRY METHOD 11/05/2024 2:48 PM [facility] Chloride 105 96 - 110 mmol/L LAB CHEMISTRY METHOD 11/05/2024 2:48 PM [facility] CO2 24 21 - 32 mmol/L LAB CHEMISTRY METHOD 11/05/2024 2:48 PM [facility] Anion Gap 7 3 - 11 LAB CHEMISTRY METHOD 11/05/2024 2:48 PM [facility] Glucose 91 70 - 100 mg/dL LAB CHEMISTRY METHOD 11/05/2024 2:48 PM [facility] BUN 18 5 - 25 mg/dL LAB CHEMISTRY METHOD 11/05/2024 2:48 PM [facility] Creatinine 1.06 0.70 - 1.30 mg/dL LAB CHEMISTRY METHOD 11/05/2024 2:48 PM [facility] eGFR 75 >=60 mL/min/1. 73m2 LAB CHEMISTRY METHOD 11/05/2024 2:48 PM [facility] Comment:Calculation based on the Chronic Kidney Disease Epidemiology Collaboration (CKD-EPI) equation refit without adjustment for race. BUN/Creatinine Ratio 17.0 LAB CHEMISTRY METHOD 11/05/2024 2:48 PM [facility] Calcium 8.8 8.5 - 10.5 mg/dL LAB CHEMISTRY METHOD 11/05/2024 2:48 PM [facility] Blood Venous blood specimen / Unknown Venipuncture / Unknown 11/05/2024 10:31 AM EDT 11/05/2024 10:31 AM EDT us Katie Veronica MD LAB BLOOD ORDERABLES Final Resul t [facility] [address] [place] [address], [place] [phone] * Depression Screening (03/14/2023) Depression Screening Abstracted [...] [place] - [place] Care Teams Roaster Operator Relationship Specialty Start Date End Date Katie Veronica MD [address] [place] [address] PCP - General 03/10/06
== END 2025-04-05 14:07 | disposition home or self-care (01) ==
LOC: HO.HMCFM 13:03
PROVIDERS: PCP Nurse Practitioner Family; Visit Provider Nurse Practitioner Family
DX: Z00.00 Encounter for general adult medical examination without abnormal findings (principal); R73.03 Prediabetes; I10 Essential (primary) hypertension; R97.20 Elevated prostate specific antigen [PSA]; R94.4 Abnormal results of kidney function studies; E78.2 Mixed hyperlipidemia; E53.8 Deficiency of other specified B group vitamins; R49.9 Unspecified voice and resonance disorder

== ENCOUNTER → 2025-04-05 13:02 | Outpatient (BNVA) | payer MEDICARE, SELFPAY | PROVIDERS: PCP Nurse Practitioner Family; Visit Provider Nurse Practitioner Family | DX: Z00.00 Encounter for general adult medical examination without abnormal findings (principal); R73.03 Prediabetes; R97.20 Elevated prostate specific antigen [PSA]; R94.4 Abnormal results of kidney function studies; R49.9 Unspecified voice and resonance disorder; E78.2 Mixed hyperlipidemia; E53.8 Deficiency of other specified B group vitamins; I10 Essential (primary) hypertension; Z98.890 Other specified postprocedural states | CPT/HCPCS: 83036; 96127; 99212; 99497; G0404 ==